=== PATIENT | female | born 1985 | race Caucasian/White ===

== ENCOUNTER 2023-01-11 13:31 | Outpatient (CLI) | payer OTHER, SELFPAY | END 2023-01-11 13:32 | disposition home or self-care (01) | PROVIDERS: Visit Provider Internal Medicine | DX: Z00.00 Encounter for general adult medical examination without abnormal findings (principal); J35.1 Hypertrophy of tonsils; Z13.6 Encounter for screening for cardiovascular disorders | CPT/HCPCS: 80053; 80061 ==

== ENCOUNTER 2023-03-13 21:08 | Outpatient (CLI) | payer OTHER, SELFPAY ==
--- NOTE | 2023-03-22 08:45 | W.PM.SLEEP ---
Sleep Study Details Details Interpreting Provider: Shadi Date of Sleep Study: 03/13/23 Sleep Study Details: STUDY TYPE:? Home unattended ? BMI:? 31.5 ORDERING PROVIDER:Nigel Hsu INDICATION:? Concerns about sleep apnea ? SLEEP SUMMARY:? 465.3 minutes monitored RESPIRATORY SUMMARY:? AHI is 23.3, supine 32, left lateral 12.2, right lateral 13.2 Low oxygen 88 0.1% of study oxygen less than 90% Snoring 1.8% PERIODIC LIMB MOVEMENTS OF SLEEP:? Not recorded during home study CARDIAC:? Range 51-99, mean 62.5 beats per minute IMPRESSION:? Moderate obstructive sleep apnea with supine position dependency. RECOMMENDATION: Treatment options would include CPAP AutoSet 4-17 versus a dental appliance.
== END 2023-03-13 21:09 | disposition home or self-care (01) ==
LOC: SLEEP 21:09
PROVIDERS: Visit Provider Otolaryngology
DX: G47.33 Obstructive sleep apnea (adult) (pediatric) (principal)
CPT/HCPCS: 95806

== ENCOUNTER 2025-01-08 07:50 | Outpatient (CLI) | payer OTHER, SELFPAY | END 2025-01-08 07:51 | disposition home or self-care (01) | LOC: NFLDREF 23:36 | PROVIDERS: PCP Internal Medicine; Referring Provider Internal Medicine; Visit Provider Internal Medicine | DX: Z00.01 Encounter for general adult medical examination with abnormal findings (principal); E78.1 Pure hyperglyceridemia | CPT/HCPCS: 80053; 80061 ==

== ENCOUNTER 2025-01-22 17:59 | Outpatient (CLI) | payer OTHER, SELFPAY ==
[2025-01-24 21:03] LABS: HPV Source Cervix; HPV, High Risk by TMA Not Detected
== END 2025-01-22 18:00 | disposition home or self-care (01) ==
PROVIDERS: PCP Internal Medicine; Visit Provider Registered Nurse
DX: Z12.4 Encounter for screening for malignant neoplasm of cervix (principal); Z11.51 Encounter for screening for human papillomavirus (HPV)
CPT/HCPCS: 87624; 87625; 88141; 88142

== ENCOUNTER 2025-05-23 07:53 | Outpatient (CLI) | payer OTHER, SELFPAY | END 2025-05-23 07:54 | disposition home or self-care (01) | LOC: NFLDREF 05-28 06:39 | PROVIDERS: PCP Internal Medicine; Referring Provider Internal Medicine; Visit Provider Internal Medicine | DX: E78.5 Hyperlipidemia, unspecified (principal) | CPT/HCPCS: 80061 ==